=== PATIENT | female | born 1945 | race Caucasian/White ===

== ENCOUNTER 2017-04-11 10:58 | Outpatient (CLI) | payer MEDICARE | END 2017-04-11 10:59 | disposition home or self-care (01) | LOC: BICMAMMO 10:58 | PROVIDERS: ATTEND Internal Medicine | DX: Z12.31 Encounter for screening mammogram for malignant neoplasm of breast (principal); R92.1 Mammographic calcification found on diagnostic imaging of breast; Z80.3 Family history of malignant neoplasm of breast | CPT/HCPCS: 77063; 77067 ==

== ENCOUNTER 2018-04-30 09:29 | Outpatient (CLI) | payer MEDICARE | END 2018-04-30 09:30 | disposition home or self-care (01) | LOC: BICMAMMO 09:29 | PROVIDERS: ATTEND Internal Medicine | DX: Z12.31 Encounter for screening mammogram for malignant neoplasm of breast (principal); Z80.3 Family history of malignant neoplasm of breast | CPT/HCPCS: 77063; 77067 ==

== ENCOUNTER 2019-05-04 08:39 | Outpatient (CLI) | payer MEDICARE ==
--- NOTE | 2019-05-06 13:29 | MMO ---
Bilateral MAMMO Bilat Screen [facility]. CLINICAL HISTORY: Patient is 74 years old and is seen for screening. The patient has the following family history of breast cancer: daughter, at age 40, malignant (generic). The patient has no personal history of cancer. VIEWS: The views performed were: bilateral craniocaudal with tomosynthesis and bilateral mediolateral oblique with tomosynthesis. FILMS COMPARED: The present examination has been compared to prior imaging studies performed at [facility] on 01/26/2015, 03/13/2016, 04/11/2017 and 04/30/2018. This study has been interpreted with the assistance of computer-aided detection. MAMMOGRAM FINDINGS: There are scattered fibroglandular densities. There are stable benign appearing calcifications seen in both breasts. There are also vascular calcifications. There are no suspicious masses, suspicious calcifications, or new areas of architectural distortion. IMPRESSION: THERE IS NO MAMMOGRAPHIC EVIDENCE OF MALIGNANCY. A ROUTINE FOLLOW-UP MAMMOGRAM IN 1 YEAR IS RECOMMENDED. THE RESULTS OF THIS EXAM WERE SENT TO THE PATIENT. ACR BI-RADS Category 2 - Benign finding MAMMOGRAPHY NOTE: 1. A negative mammogram report should not delay a biopsy if a dominant of clinically suspicious mass is present. 2. Approximately 10% to 15% of breast cancers are not detected by mammography. 3. Adenosis and dense breasts may obscure an underlying neoplasm. Reported by: ORACIO LADD MD Electonically Signed: [id number]
== END 2019-05-04 08:40 | disposition home or self-care (01) ==
LOC: BICMAMMO 08:39
PROVIDERS: ATTEND Internal Medicine
DX: Z12.31 Encounter for screening mammogram for malignant neoplasm of breast (principal); Z80.3 Family history of malignant neoplasm of breast
CPT/HCPCS: 77063; 77067

== ENCOUNTER 2019-05-11 17:03 | Inpatient (IN) | payer MEDICARE, OTHER ==
--- NOTE | 2019-05-11 18:33 | RAD ---
XR Chest Pa Lat STANDARD HISTORY: Chest pain COMPARISON: 04/05/2014 FINDINGS: The heart size is at upper limits of normal. The lungs are well expanded without focal area s of consolidation, pneumothorax or pleural effusions. IMPRESSION: No radiographic evidence of acute cardiopulmonary process.
[2019-05-11 19:01] LABS: #Basophils 0.1 thou/uL (0.0-0.2); #Eosinphils 0.2 thou/uL (0.0-0.7); #Lymphocytes 1.4 thou/uL (1.20-3.40); #Monocytes 0.4 thou/uL (0.11-0.59); #Neutrophils 5.5 thou/uL (1.40-6.50); %Eosinophils 2.2 % (0.0-10.0); %Lymphocytes 19.1 % (21.0-51.0); %Monocytes 4.9 % (0.0-10.0); %Neutrophils 72.9 % (42.0-75.0); Hemoglobin 14.8 g/dL (12.0-16.0); Mean Corpuscular HGB CONC 33.5 g/dL (32.0-36.0); Mean Corpuscular Hemoglobin 30.7 pg (27.0-31.0); Mean Corpuscular Volume 91.7 fL (78.0-98.0); Mean Platelet Volume 8.3 fL (7.4-10.4); Platelet Count 267 thou/uL (130-400); RBC Distribution Width 12.5 % (11.5-14.5); Red Blood Cell (RBC) Count 4.81 mill/uL (4.20-5.40); White Blood Cell (WBC) Count 7.6 thou/uL (4.8-10.8)
[2019-05-11 19:16] LABS: ALT (SGPT) 17 U/L (8-55); AST (SGOT) 20 U/L (5-34); Albumin 4.4 g/dL (3.4-4.8); Alkaline Phosphatase 94 U/L (40-110); Anion Gap 14 mmol/L (10-20); BUN (Urea Nitrogen) 22 mg/dL (9.8-20.1); Bilirubin, Total 0.9 mg/dL (0.2-1.2); Calc. Creatinine Clearance 0 mL/min (70-130); Calcium 9.5 mg/dL (7.8-10.44); Carbon Dioxide 28 mmol/L (23-31); Chloride 101 mmol/L (98-107); Estimated GFR-MDRD 67; Globulin 2.9 g/dL (2.4-3.5); Glucose 120 mg/dL (83-110); Potassium 4.4 mmol/L (3.5-5.1); Protein, Total 7.3 g/dL (6.0-8.3); Sodium 139 mmol/L (136-145)
[2019-05-11] MEDS ORDERED: Nitroglycerin 2% Ointment 1 INCH/1 GM Packet ONE (19:18)
[2019-05-11 19:58] LABS: CK (CPK) 138 U/L (29-168); Lipase 14 U/L (8-78)
[2019-05-11 20:02] LABS: CKMB 3.1 ng/mL (0-6.6)
[2019-05-11] MEDS ORDERED: Enoxaparin Sodium 30 MG/0.3 ML SYRINGE ONE (20:18)
[2019-05-11] MEDS ORDERED: Enoxaparin Sodium 60 MG/0.6 ML SYRINGE ONE (20:18)
[2019-05-11] MEDS ORDERED: Morphine 2 MG/ML SYRINGE SLOW IVP PRN ×2 (21:13→22:14)
[2019-05-11] MEDS ORDERED: Nitroglycerin 0.4 MG TAB (25 Tab Bottle) SL PRN (21:13)
[2019-05-11] MEDS ORDERED: Ondansetron PF 4 MG/2 ML Vial IVP PRN (21:15)
--- NOTE | 2019-05-11 21:24 | PDOC.HHP ---
Hospitalist HPI - History of Present Illness Chest pain History of Present Illness: 74 yo with history of A.Fib s/p ablation here for chest pain that started yesterday. She describes it as indigestion, 3/10 intensity in the middle of the chest radiating to her left shoulder. This happened yesterday and resolved. Again happened today AM and she took 2 ASA and lopressor that she takes PRN. The chest pain resolved. As it happened again this evening, she came to ER and was found to have elevated troponins. She got full dose lovenox and is being admitted for NSTEMI. Denies SOB, cough, wheezing, N/V/C, abdominal pain, burning or pain with urination. No swelling in her legs. No recent travel history, headache, dizziness. She reports diarrhea today. No fever, chills. Hospitalist ROS - Review of Systems All other systems reviewed; all pertinent +/- noted in HPI/Subj Hospitalist History - Past Medical History Source: patient Cardiac: reports: AFIB Pulmonary: reports: Other (Pulmonary HTN) Heme/Onc: reports: Cancer (Bladder s/p resection), Other (Pernicious anemia) - Past Surgical History Past Surgical History: reports: Total Knee Replacement (Right) Other Surgical History: Bladder cancer surgery - Family History Family History: reports: no pertinent history (reviewed) - Social History Smoking Status: Former smoker Tobacco Type: cigarettes (20 pack years) Alcohol: reports: Occassional Drugs: reports: none Living Situation: With Family Activity level: uses cane/walker (intermittently) - Exam General Appearance: NAD, awake alert Eye: PERRL, anicteric sclera ENT: normocephalic atraumatic, no oropharyngeal lesions, moist mucosa Neck: supple, symmetric, no JVD, no thyromegaly, no lymphadenopathy, no carotid bruit Heart: RRR, no murmur, no gallops, no rubs, normal peripheral pulses Respiratory: CTAB, no wheezes, no rales, no ronchi, normal chest expansion, no tachypnea Respiratory - other findings: not using accessory muscles of respiration; no chest wall tenderness Gastrointestinal: soft, non-tender, non-distended, normal bowel sounds, no palpable masses, no hepatomegaly, no splenomegaly, no bruit Extremities: no cyanosis, no clubbing, no edema Skin: normal turgor, no lesions, no rashes Neurological: cranial nerve grossly intact, normal sensation to touch, no weakness, no focal deficits, no new deficit Musculoskeletal: normal tone, normal strength, no muscle wasting Psychiatric: normal affect, normal behavior, A&O x 3 Hospitalist Results - Labs Result Diagrams: 05/11/19 18:51 05/11/19 18:51 Lab results: WBC 7.6 thou/uL (4.8-10.8) 05/11/19 18:51 Hgb 14.8 g/dL (12.0-16.0) 05/11/19 18:51 Hct 44.1 % (36.0-47.0) 05/11/19 18:51 MCV 91.7 fL (78.0-98.0) 05/11/19 18:51 Plt Count 267 thou/uL (130-400) 05/11/19 18:51 Neutrophils % 72.9 % (42.0-75.0) 05/11/19 18:51 Sodium 139 mmol/L (136-145) 05/11/19 18:51 Potassium 4.4 mmol/L (3.5-5.1) 05/11/19 18:51 Chloride 101 mmol/L (98-107) 05/11/19 18:51 Carbon Dioxide 28 mmol/L (23-31) 05/11/19 18:51 BUN 22 mg/dL (9.8-20.1) H 05/11/19 18:51 Creatinine 0.83 mg/dL (0.6-1.1) 05/11/19 18:51 Glucose 120 mg/dL (83-110) H 05/11/19 18:51 Calcium 9.5 mg/dL (7.8-10.44) 05/11/19 18:51 Total Bilirubin 0.9 mg/dL (0.2-1.2) 05/11/19 18:51 AST 20 U/L (5-34) 05/11/19 18:51 ALT 17 U/L (8-55) 05/11/19 18:51 Alkaline Phosphatase 94 U/L (40-110) 05/11/19 18:51 Creatine Kinase 138 U/L (29-168) 05/11/19 18:51 CK-MB (CK-2) 3.1 ng/mL (0-6.6) 05/11/19 18:51 Troponin I 0.315 ng/mL (< 0.028) H* 05/11/19 18:51 Serum Total Protein 7.3 g/dL (6.0-8.3) 05/11/19 18:51 Albumin 4.4 g/dL (3.4-4.8) 05/11/19 18:51 Lipase 14 U/L (8-78) 05/11/19 18:51 - EKG Interpretation EKG: Personally reviewed; S.rhythm; Non-specific ST-T changes - Radiology Interpretation Chest x-ray Status: image reviewed by me (no consolidation or CP angle blunting) Hospitalist H&P A/P - Problem (1) NSTEMI (non-ST elevated myocardial infarction) Code(s): I21.4 - NON-ST ELEVATION (NSTEMI) MYOCARDIAL INFARCTION Status: Acute Assessment and Plan: Admit to telemetry to inpatient status. Expected to stay at least 2 midnights. High risk due to risk of lethal arrhythmias Received ASA and NTG patch Continue ASA Start plavix, statin Cardio consult ECHO ordered Full dose lovenox Cycle cardiac enzymes (2) Atrial fibrillation Code(s): I48.91 - UNSPECIFIED ATRIAL FIBRILLATION Status: Chronic Qualifiers: Atrial fibrillation type: paroxysmal Qualified Code(s): I48.0 - Paroxysmal atrial fibrillation Assessment and Plan: In sinus rhythm now Uses BB PRN as instructed by her respiratory director from [place] HR in 60-70s Hold BB for now to avoid bradycardia (3) Pulmonary hypertension Code(s): I27.20 - PULMONARY HYPERTENSION, UNSPECIFIED Status: Chronic Assessment and Plan: Not requiring oxygen Stable (4) Pernicious anemia Code(s): D51.0 - VITAMIN B12 DEFIC ANEMIA DUE TO INTRINSIC FACTOR DEFICIENCY Status: Chronic Assessment and Plan: Stable Monitor H&H and transfuse PRN (5) LAKESHA (obstructive sleep apnea) Code(s): G47.33 - OBSTRUCTIVE SLEEP APNEA (ADULT) (PEDIATRIC) Status: Chronic Assessment and Plan: Uses CPAP at home Instructed to bring home CPAP for use in the hospital Doesn't remember her settings - Plan Plan: Code status - FULL CODE
[2019-05-11] MEDS ORDERED: Clopidogrel Bisulfate 300 MG TAB PO SCH (22:15)
[2019-05-11 22:39] LABS: Troponin I 1.296 ng/mL (< 0.028)
[2019-05-12 00:03] VITALS: BMI 31.0
[2019-05-12] MEDS: Acetaminophen 500 MG TAB PO PRN ×2 (01:00→10:15)
[2019-05-12 01:20] LABS: Troponin I 2.408 ng/mL (< 0.028)
[2019-05-12 05:10] LABS: #Basophils 0.1 thou/uL (0.0-0.2); #Eosinphils 0.2 thou/uL (0.0-0.7); #Lymphocytes 2.4 thou/uL (1.20-3.40); #Monocytes 0.7 thou/uL (0.11-0.59); #Neutrophils 5.4 thou/uL (1.40-6.50); %Basophils 1.2 % (0.0-1.0); %Eosinophils 2.5 % (0.0-10.0); %Lymphocytes 26.9 % (21.0-51.0); %Monocytes 7.7 % (0.0-10.0); %Neutrophils 61.8 % (42.0-75.0); Hemoglobin 12.9 g/dL (12.0-16.0); Mean Corpuscular HGB CONC 33.3 g/dL (32.0-36.0); Mean Corpuscular Hemoglobin 30.5 pg (27.0-31.0); Mean Corpuscular Volume 91.6 fL (78.0-98.0); Mean Platelet Volume 8.9 fL (7.4-10.4); Platelet Count 231 thou/uL (130-400); RBC Distribution Width 12.3 % (11.5-14.5); Red Blood Cell (RBC) Count 4.24 mill/uL (4.20-5.40); White Blood Cell (WBC) Count 8.8 thou/uL (4.8-10.8)
[2019-05-12 05:21] LABS: ALT (SGPT) 14 U/L (8-55); AST (SGOT) 22 U/L (5-34); Albumin 3.6 g/dL (3.4-4.8); Alkaline Phosphatase 77 U/L (40-110); Anion Gap 12 mmol/L (10-20); BUN (Urea Nitrogen) 15 mg/dL (9.8-20.1); Calc. Creatinine Clearance 109 mL/min (70-130); Calcium 8.8 mg/dL (7.8-10.44); Carbon Dioxide 27 mmol/L (23-31); Chloride 103 mmol/L (98-107); Cholesterol 174 mg/dl (< 200 Desired); Estimated GFR-MDRD 89; Globulin 2.7 g/dL (2.4-3.5); Glucose 90 mg/dL (83-110); HDL Cholesterol 44 mg/dL (>60 Neg Risk); LDL Cholesterol, Calculated 112 mg/dL; Potassium 3.5 mmol/L (3.5-5.1); Protein, Total 6.3 g/dL (6.0-8.3); Sodium 138 mmol/L (136-145); Triglycerides 91 mg/dL (Less than 150)
[2019-05-12 05:32] LABS: Critical Call Chem Troponin I RESULT DECREASING
[2019-05-12 05:55] LABS: CKMB 12.2 ng/mL (0-6.6)
[2019-05-12] MEDS: Sodium Chloride 0.9% 1,000 ML IV SCH ×2 (08:11→21:27)
[2019-05-12] MEDS: Enoxaparin Sodium 100 MG/ML SYRINGE SC SCH ×2 (10:13→21:29)
[2019-05-12] MEDS: Clopidogrel Bisulfate 75 MG TAB PO SCH (10:15)
[2019-05-12] MEDS: Aspirin 81 mg Enteric Coated Tablet PO SCH (10:15)
--- NOTE | 2019-05-12 15:45 | PDOC.HOSPP ---
- Subjective Encounter Date: 05/12/19 Encounter Time: 08:45 Subjective: no chest pain or sob or palp last stress test was more than 4 yrs ago has had atleast 4 ablations for afib, last one was in jan 2018 in [place]. h/o pulm htn from 2013 off toprol scheduled dosing from august of last year, uses on a prn basis - Objective Vital Signs & Weight: Vital Signs (12 hours) Temp Pulse Resp BP Pulse Ox 05/12/19 11:18 98 F 65 14 109/60 95 05/12/19 08:11 97.8 F 66 18 113/60 94 L Weight Weight 204 lb 1.6 oz I&O: 05/11/19 05/12/19 05/13/19 06:59 06:59 06:59 Intake Total 120 Output Total 1000 Balance -880 Result Diagrams: 05/12/19 04:05 05/12/19 04:05 Hospitalist ROS - Medication Medications: Active Medications Generic Name Dose Route Start Last Admin Trade Name Freq PRN Reason Stop Dose Admin Acetaminophen 500 mg 05/11/19 21:15 05/12/19 10:15 Tylenol PO 500 mg Q6H PRN Administration Mild Pain (1-3) Aspirin 81 mg 05/12/19 09:00 05/12/19 10:15 Ecotrin PO 81 mg DAILY JUNIOR Administration Clopidogrel Bisulfate 75 mg 05/12/19 09:00 05/12/19 10:15 Plavix PO 75 mg DAILY JUNIOR Administration Enoxaparin Sodium 90 mg 05/12/19 09:00 05/12/19 10:13 Lovenox SC 90 mg 0900,2100 JUNIOR Administration Sodium Chloride 1,000 mls @ 70 mls/hr 05/12/19 07:15 05/12/19 08:11 Normal Saline 0.9% IV 1,000 mls .[id number] JUNIOR Administration - Exam General Appearance: awake alert Eye: PERRL, anicteric sclera ENT: no oropharyngeal lesions, moist mucosa Neck: supple, no JVD Heart: RRR, no murmur Respiratory: no wheezes, no rales Gastrointestinal: soft, non-tender, non-distended, normal bowel sounds Extremities: no cyanosis, no edema Neurological: cranial nerve grossly intact, no focal deficits Psychiatric: normal affect, A&O x 3 Hosp A/P (1) NSTEMI (non-ST elevated myocardial infarction) Code(s): I21.4 - NON-ST ELEVATION (NSTEMI) MYOCARDIAL INFARCTION Status: Acute (2) Atrial fibrillation Code(s): I48.91 - UNSPECIFIED ATRIAL FIBRILLATION Status: Chronic Qualifiers: Atrial fibrillation type: paroxysmal Qualified Code(s): I48.0 - Paroxysmal atrial fibrillation (3) LAKESHA (obstructive sleep apnea) Code(s): G47.33 - OBSTRUCTIVE SLEEP APNEA (ADULT) (PEDIATRIC) Status: Chronic (4) Pernicious anemia Code(s): D51.0 - VITAMIN B12 DEFIC ANEMIA DUE TO INTRINSIC FACTOR DEFICIENCY Status: Chronic (5) Pulmonary hypertension Code(s): I27.20 - PULMONARY HYPERTENSION, UNSPECIFIED Status: Chronic (6) Dyslipidemia Code(s): E78.5 - HYPERLIPIDEMIA, UNSPECIFIED Status: Chronic - Plan no prior cath or cad, last stress test was >4 yrs back and was normal per patient no current chest pain trop is upto 2.3, ckmb is 12, ldl of 112 is npo for possible cath per cardiology adv on lovenox full dose, nitropaste, morphine prn, asp, plavix and lipitor hemostable
[2019-05-12] MEDS ORDERED: Communication Order-Pharmacy FS SCH (19:45)
[2019-05-12] MEDS: Atorvastatin Calcium 40 MG TAB PO SCH (21:26)
--- NOTE | 2019-05-13 01:35 | CON ---
DATE OF CONSULTATION: HISTORY OF PRESENT ILLNESS: The patient is a 74-year-old woman with a history of paroxysmal atrial fibrillation, who presented with chest discomfort. The patient has a long history of atrial fibrillation. She states she has undergone multiple ablations in [place]. The patient states her first one was in 2001 and the last one was in 2018. The patient was in her usual state of health when she developed mid sternal chest discomfort. She came to the emergency room. Her chest pain resolved with nitroglycerin. The patient denies any present chest discomfort. PAST MEDICAL HISTORY: 1. Atrial fibrillation. 2. Pulmonary hypertension. 3. Bladder carcinoma. PAST SURGICAL HISTORY: Knee surgery and bladder surgery. ALLERGIES: SEE NURSING LIST. SOCIAL HISTORY: Nonsmoker. MEDICATIONS: 1. Spironolactone 25 daily. 2. Estradiol 1 g daily. 3. Aspirin 81 daily. 4. Metoprolol 12.5 daily. SOCIAL HISTORY: Nonsmoker. FAMILY HISTORY: Positive family history of heart disease. REVIEW OF SYSTEMS: Ten-point system otherwise unremarkable. No history of easy bruising or bleeding. PHYSICAL EXAMINATION: GENERAL: This is an obese woman, in no acute distress. VITAL SIGNS: Blood pressure 112/59. NECK: No jugular venous distention. LUNGS: Clear to auscultation. HEART: Regular rate and rhythm. Normal S1, S2. No murmurs. ABDOMEN: Nondistended. EXTREMITIES: Showed no edema. VASCULAR: Radial pulses are 2+. LABORATORY DATA: Sodium 138, potassium 3.5, chloride 103, bicarbonate 27, BUN 15, creatinine 0.65. Troponin was 2.3. Her white blood cell count is 8.8, hemoglobin 12.9, hematocrit 38.8, and platelet 231. EKG ectopic atrial rhythm with a low- voltage QRS. IMPRESSION: 1. Non-Q-wave myocardial infarction. 2. Ectopic atrial rhythm. 3. History of atrial fibrillation. 4. Sleep apnea. 5. History of bladder carcinoma. This patient presents with a non-Q-wave myocardial infarction. The patient is agreeable to undergo a cardiac catheterization to evaluate the extent of her coronary arteries. The risks involved the procedure including PA, bleeding, stroke, cardiacarrhythmias, and cardiac . The patient understands these risks and wishes to proceed. PLAN: Proceed with cardiac catheterization. Job ID: [id number] [facility]
[2019-05-13 04:41] LABS: Hemoglobin 13.3 g/dL (12.0-16.0); Platelet Count 215 thou/uL (130-400)
[2019-05-13] MEDS: Aspirin 81 mg Enteric Coated Tablet PO SCH (06:15)
[2019-05-13] MEDS: Clopidogrel Bisulfate 75 MG TAB PO SCH (06:17)
[2019-05-13] MEDS ORDERED: Lidocaine 1% (PF) 30 ML VIAL ONE (07:49)
[2019-05-13] MEDS ORDERED: Fentanyl 100 MCG/2 ML VIAL ONE (08:21)
[2019-05-13] MEDS ORDERED: Midazolam HCl 2 mg/2 ml Vial ONE (08:21)
[2019-05-13] MEDS ORDERED: Nitroglycerin 0.4 MG TAB (25 Tab Bottle) SL PRN (08:45)
[2019-05-13] MEDS ORDERED: Sodium Chloride 0.9% 200 ML IV PRN (08:45)
[2019-05-13] MEDS ORDERED: Acetaminophen/Codeine 30-300mg Tablet PO PRN (08:45)
[2019-05-13] MEDS ORDERED: Iopamidol 370 76% 100 ML VIAL ONE (09:05)
[2019-05-13] MEDS: Acetaminophen/Codeine 30-300mg Tablet PO PRN ×2 (10:03→18:06)
[2019-05-13] MEDS: Sodium Chloride 0.9% 1,000 ML IV SCH ×2 (10:04→18:07)
--- NOTE | 2019-05-13 12:41 | PDOC.HOSPP ---
- Subjective Encounter Date: 05/13/19 Encounter Time: 10:45 Subjective: had cath this am, no sob feels fine family at bedside - Objective Vital Signs & Weight: Vital Signs (12 hours) Temp Pulse Resp BP Pulse Ox 05/13/19 12:00 98.6 F 73 18 117/58 L 95 05/13/19 07:37 97.8 F 68 20 118/57 L 97 05/13/19 03:57 98.7 F 68 18 133/65 96 Weight Weight 204 lb 1.6 oz I&O: 05/12/19 05/13/19 05/14/19 06:59 06:59 06:59 Intake Total 120 830 Output Total 1000 1500 Balance -880 -670 Result Diagrams: 05/13/19 03:55 05/13/19 03:55 Hospitalist ROS - Medication Medications: Active Medications Generic Name Dose Route Start Last Admin Trade Name Freq PRN Reason Stop Dose Admin Acetaminophen 500 mg 05/11/19 21:15 05/12/19 10:15 Tylenol PO 500 mg Q6H PRN Administration Mild Pain (1-3) Acetaminophen/Codeine Phosphate 1 tab 05/13/19 08:45 05/13/19 10:03 Tylenol #3 PO 1 tab Q4H PRN Administration Mild Pain (1-3) Aspirin 81 mg 05/12/19 09:00 05/13/19 06:15 Ecotrin PO 81 mg DAILY JUNIOR Administration Atorvastatin Calcium 40 mg 05/12/19 21:00 05/12/19 21:26 Lipitor PO 40 mg HS JUNIOR Administration Sodium Chloride 1,000 mls @ 125 mls/hr 05/13/19 08:45 05/13/19 10:04 Normal Saline 0.9% IV Not Given .Q8H JUNIOR - Exam General Appearance: awake alert Eye: PERRL, anicteric sclera ENT: no oropharyngeal lesions, moist mucosa Neck: supple, no JVD Heart: RRR, no murmur Respiratory: no wheezes, no rales Gastrointestinal: soft, non-tender, non-distended, normal bowel sounds Extremities: no cyanosis, no edema Neurological: cranial nerve grossly intact, no focal deficits Psychiatric: normal affect, A&O x 3 Hosp A/P (1) NSTEMI (non-ST elevated myocardial infarction) Code(s): I21.4 - NON-ST ELEVATION (NSTEMI) MYOCARDIAL INFARCTION Status: Acute (2) Atrial fibrillation Code(s): I48.91 - UNSPECIFIED ATRIAL FIBRILLATION Status: Chronic Qualifiers: Atrial fibrillation type: paroxysmal Qualified Code(s): I48.0 - Paroxysmal atrial fibrillation (3) LAKESHA (obstructive sleep apnea) Code(s): G47.33 - OBSTRUCTIVE SLEEP APNEA (ADULT) (PEDIATRIC) Status: Chronic (4) Pernicious anemia Code(s): D51.0 - VITAMIN B12 DEFIC ANEMIA DUE TO INTRINSIC FACTOR DEFICIENCY Status: Chronic (5) Pulmonary hypertension Code(s): I27.20 - PULMONARY HYPERTENSION, UNSPECIFIED Status: Chronic (6) Dyslipidemia Code(s): E78.5 - HYPERLIPIDEMIA, UNSPECIFIED Status: Chronic - Plan Official cath report pending, per patient they found her to have Takusubo syndrome. no prior cath or cad, last stress test was >4 yrs back and was normal per patient trop was upto 2.3, ckmb was 12, ldl of 112 asp, plavix and lipitor. Echo results pending hemostable DC plan per cardiology adv
[2019-05-13] MEDS: Atorvastatin Calcium 40 MG TAB PO SCH (20:26)
[2019-05-14] MEDS: Acetaminophen/Codeine 30-300mg Tablet PO PRN (00:41)
[2019-05-14] MEDS: Sodium Chloride 0.9% 1,000 ML IV SCH (00:43)
[2019-05-14] MEDS ORDERED: Carvedilol 3.125 MG TAB PO SCH (09:00)
[2019-05-14] MEDS: Aspirin 81 mg Enteric Coated Tablet PO SCH (09:05)
[2019-05-14 11:43] VITALS: TEMP 97.5
[2019-05-14 14:24] VITALS: BP 125/58
--- NOTE | 2019-05-14 21:38 | DIS ---
DATE OF ADMISSION: 05/11/2019 DATE OF DISCHARGE: 05/14/2019 REASON FOR HOSPITALIZATION: Chest pain. SIGNIFICANT FINDINGS: The patient was found to have atrial fibrillation with rapid ventricular response, who is status post multiple ablations, presenting with chest discomfort, went for cardiac catheterization and was confirmed to have a low ejection fraction on echocardiogram with an ejection fraction recorded at 28%. PROCEDURES PERFORMED AND TREATMENTS RENDERED: Ms. Osorio is a very pleasant 74-year-old female, who presented to the [facility] in [place], [place] on 05/11/2019, with chest pain. Please see full history and physical and progress notes for full details on admission. On admission with chest discomfort, the patient was recommended for cardiac catheterization and was taken by Dr. Hoover, please see full cardiac catheterization report for details. The patient had no acute stent placement in her coronary anatomy, though she was found to have a reduced ejection fraction. The patient was monitored on continuous telemetry throughout her hospitalization. The patient with echocardiogram, please see full report for details, this confirmed a low ejection fraction of 20% to 25% with the apex being akinetic to dyskinetic in addition to diastolic dysfunction grade 3. The patient was diagnosed with acute on chronic congestive heart failure. The patient was diagnosed with type 2 NSTEMI, present on admission. Cardiomyopathy regimen was selected by customer support specialist, please see full report for details. Cardiology recommending anti-platelet therapy with aspirin only. The patient was on appropriate diuretic therapy including spironolactone and statin therapy. VIANNEY inhibitor was to be started, however, the patient has severe allergy to lisinopril and it was contraindicated. The patient was set up with her LifeVest by Cardiology prior to discharge on 05/14/2019. Cardiology recommending the patient safe for discharge with close followup in the outpatient setting. CONDITION ON DISCHARGE: Stable. SPECIFIC INSTRUCTIONS FOR THE PATIENT/FAMILY: 1. The patient is recommended to wear LifeVest as recommended by Cardiology. 2. The patient is recommended to take cardiomyopathy regimen as directed by Cardiology. 3. The patient is recommended to keep a strict blood pressure log and log events of low blood pressure or any time she is having symptoms, she is to take these logs to appointments with primary care physician and Cardiology in the outpatient setting. 4. The patient is recommended to take all other medications as directed, to be re-evaluated by primary care physician and Cardiology. 5. The patient is recommended to return to acute care hospital immediately if signs or symptoms return, worsen, or any other new symptoms occur. DISCHARGE MEDICATIONS: 1. Please see full discharge medication list for details. 2. Atorvastatin 40 mg one tablet p.o. at bedtime. 3. Carvedilol 3.125 mg one tablet p.o. b.i.d. 4. Spironolactone 25 mg one tablet p.o. daily. 5. Estradiol vaginal daily. 6. Torsemide 20 mg one tablet p.o. daily. 7. Vitamin D one tablet p.o. daily. 8. Vitamin B12 of 100 mcg intramuscular injection q.month. 9. Aspirin 81 mg one tablet p.o. daily. 10. Krill oil 300 mg one tablet p.o. daily. TIME SPENT: Greater than 37 minutes spent coordinating care and discharge process for this patient. Job ID: [id number]
--- NOTE | 2019-05-17 07:57 | PQF ---
CHEVYVERENICEALANNA JORDAN [id number] [facility]-254 [id number] CLINICAL DOCUMENTATION CLARIFICATION FORM: POST DISCHARGE Addendum to original discharge summary date: ____ Late entry note date: __ DATE:05/17/2019 ATTN:ALANNA WELCH Please exercise your independent, professional judgment in responding to the clarification form. Clinical indicators are provided on the bottom of this form for your review Please check appropriate box(s) to clarify if the following diagnosis has been ruled in or ruled out: Acute on chronic congestive heart failure [ ] Ruled in diagnosis [ ] Continue to treat [ ] Resolved [ ] Ruled out diagnosis [ ] Cannot rule out diagnosis [ ] Other diagnosis [ X ] Unable to determine (Please discuss with the discharging physician) In addition, If Ruled in please specify the type of CHF: HEART FAILURE: TYPE: [ ] Systolic / HFrEF [ ] Diastolic / HFpEF [ ] Combined Systolic / Diastolic For continuity of documentation, please document condition throughout progress notes and discharge summary. Thank You. CLINICAL INDICATORS - SIGNS / SYMPTOMS / LABS - patient was diagnosed with acute on chronic congestive heart failure-, 05/14 , Alec Banda DO - she was found to have a reduced ejection fraction--DS, 05/14, Alec Banda DO - the confirmed a low ejection fraction of 20% to 25% with the apex being akinetic in addition to diastolic dysfuction grade 3--DS, 05/14, Alec Banda DO - ejection fraction recorded at 28 %--BALTA, 05/14Alec DO RISK FACTORS - type 2 NSTEMI--DS, 05/14, Alec Banda DO - Hx of hypertension- ED record, 05/11, Dwight Glasgow MD TREATMENTS - Cardiology consult-05/12 -- Nitroglycerin.IV- 05/13 - Carvedolol.PO- MAR, 02/21 (This form is maintained as a part of the permanent medical record) 2014 [employer] All Rights Reserved Dari NICOLE
--- NOTE | 2019-05-17 08:55 | EKG ---
Test Reason : Blood Pressure : / mmHG Vent. Rate : 117 BPM Atrial Rate : 102 BPM P-R Int : 000 ms QRS Dur : 084 ms QT Int : 326 ms P-R-T Axes : 000 026 226 degrees QTc Int : 454 ms Atrial fibrillation with rapid ventricular response Low voltage QRS Abnormal ECG Confirmed by TIA IRWIN ([id number]) on 05/17/2019 8:55:30 AM Referred By: JOVANNI Confirmed By:TIA IRWIN
--- NOTE | 2019-05-27 00:35 | PQF ---
CHEVYVERENICE RASHAWN MIGUEL [id number] CLINICAL DOCUMENTATION CLARIFICATION FORM: POST DISCHARGE Addendum to original discharge summary date: ____ Late entry note date: __ DATE: 05/27/2019 ATTN:RASHAWN GATES Please exercise your independent, professional judgment in responding to the clarification form. Clinical indicators are provided on the bottom of this form for your review Please check appropriate box(s) to clarify if the following diagnosis has been ruled in or ruled out: Acute on chronic congestive heart failure [ XX ] Ruled in diagnosis [ ] Continue to treat [ ] Resolved [ ] Ruled out diagnosis [ ] Cannot rule out diagnosis [ ] Other diagnosis [ ] Unable to determine In addition, If Ruled in diagnosis please specify the type of CHF: Heart failure: Type: [ ] Systolic /HFrEF [ ] Diastolic / HFpEF [ XX ] Combined Systolic/ Diastolic For continuity of documentation, please document condition throughout progress notes and discharge summary. Thank You. CLINICAL INDICATORS - SIGNS / SYMPTOMS / LABS - patient was diagnosed with acute on chronic congestive heart failure- DS, , Alec Banda DO - She was found to have reduced ejection fraction- DS, 05/14, Alec Banda DO - The confirmed a low ejection fraction of 20% to 25 % with the apex being akinetic in addition to diastolic dysfuction grade 3- DS, 05/14, Alec Banda DO - Ejection fraction recorded at 28%- DS, 05/14, Alec Banda DO RISK FACTORS - Type 2 NSTEMI- DS, 05/14, Alec Banda DO - Hx of hypertension- ED record, 05/11, Dwight Glasgow MD TREATMENTS - Cardiology consult-05/12 - Nitroglycerin.IV-MAY, 05/13 - Carvedilol.PO- MAY, 05/14 (This form is maintained as a part of the permanent medical record) 2014 [employer]. All Rights Reserved Dari [email or web address] NICOLE
== END 2019-05-14 14:32 | disposition home or self-care (01) | DRG 280 ==
LOC: ERS 17:03 → 2NO 20:02
PROVIDERS: ADMIT Internal Medicine Sleep Medicine; ATTEND Internal Medicine
PROC: 4A023N7 Measurement of Cardiac Sampling and Pressure, Left Heart, Percutaneous Approach (ICD-10-PCS; principal; 2019-05-13)
PROC: B2111ZZ Fluoroscopy of Multiple Coronary Arteries using Low Osmolar Contrast (ICD-10-PCS; 2019-05-13)
DX: I48.0 Paroxysmal atrial fibrillation (principal); I21.A1 Myocardial infarction type 2; I50.43 Acute on chronic combined systolic (congestive) and diastolic (congestive) heart failure; Z96.651 Presence of right artificial knee joint; I27.20 Pulmonary hypertension, unspecified; G47.33 Obstructive sleep apnea (adult) (pediatric); I42.9 Cardiomyopathy, unspecified; D51.0 Vitamin B12 deficiency anemia due to intrinsic factor deficiency; I11.0 Hypertensive heart disease with heart failure; E78.5 Hyperlipidemia, unspecified; Z79.01 Long term (current) use of anticoagulants; Z87.891 Personal history of nicotine dependence; Z88.6 Allergy status to analgesic agent; Z88.8 Allergy status to other drugs, medicaments and biological substances
CPT/HCPCS: 36415; 71046; 76942; 80053; 80061; 82550; 82553; 82565; 83690; 84484; 85014; 85018; 85025; 85049; 93005; 93010; 93306; 93458; 93798; 94760; 96360; 96372; 99152; 99153; C1760; C1769; J1644; J1650; J2001; J2250; J3010; Q9967

== ENCOUNTER 2019-08-09 04:12 | Observation (INO) | payer MEDICARE, OTHER ==
[2019-08-09 04:50] LABS: #Basophils 0.1 thou/uL (0.0-0.2); #Eosinphils 0.4 thou/uL (0.0-0.7); #Lymphocytes 1.7 thou/uL (1.20-3.40); #Monocytes 0.5 thou/uL (0.11-0.59); %Basophils 1.4 % (0.0-1.0); %Eosinophils 6.5 % (0.0-10.0); %Lymphocytes 24.9 % (21.0-51.0); %Monocytes 7.8 % (0.0-10.0); %Neutrophils 59.4 % (42.0-75.0); Hemoglobin 12.6 g/dL (12.0-16.0); Mean Corpuscular HGB CONC 32.4 g/dL (32.0-36.0); Mean Corpuscular Hemoglobin 30.1 pg (27.0-31.0); Mean Corpuscular Volume 92.8 fL (78.0-98.0); Mean Platelet Volume 8.2 fL (7.4-10.4); Platelet Count 218 thou/uL (130-400); RBC Distribution Width 12.9 % (11.5-14.5); White Blood Cell (WBC) Count 6.7 thou/uL (4.8-10.8)
[2019-08-09 05:16] LABS: ALT (SGPT) 15 U/L (8-55); AST (SGOT) 17 U/L (5-34); Albumin 3.8 g/dL (3.4-4.8); Alkaline Phosphatase 102 U/L (40-110); Anion Gap 12 mmol/L (10-20); Bilirubin, Total 0.9 mg/dL (0.2-1.2); Calc. Creatinine Clearance 0 mL/min (70-130); Calcium 8.9 mg/dL (7.8-10.44); Carbon Dioxide 29 mmol/L (23-31); Chloride 101 mmol/L (98-107); Estimated GFR-MDRD 69; Globulin 3.1 g/dL (2.4-3.5); Glucose 128 mg/dL (83-110); Potassium 3.7 mmol/L (3.5-5.1); Protein, Total 6.9 g/dL (6.0-8.3); Sodium 138 mmol/L (136-145)
[2019-08-09 05:37] LABS: CKMB 1.5 ng/mL (0-6.6)
[2019-08-09] MEDS ORDERED: Acetaminophen 325 MG TAB PO PRN (07:44)
[2019-08-09] MEDS ORDERED: Senokot S 8.6-50 MG TAB PO PRN (07:44)
[2019-08-09 07:45] VITALS: BMI 31.9
--- NOTE | 2019-08-09 07:51 | RAD ---
Chest one view HISTORY: Chest pain. COMPARISON: 05/11/2019. FINDINGS: Cardiac silhouette is magnified and enlarged. Pulmonary vasculature now upper limits of nor mal. Ill-defined patchy areas of parenchymal opacity are now present, more pronounced in the lower lobes than the upper. Partial obscuration of the cardiac margins. No lobar consolidation or evidence of pneumothorax. Dystrophic calcification over the left rotator cuff is again demonstrated. IMPRESSION : Patchy ill-defined bilateral infiltrates. Considerations would include multifocal pneumonitis versus borderline pulmonary vascular congestion.
[2019-08-09 09:00] LABS: CKMB 1.7 ng/mL (0-6.6)
[2019-08-09] MEDS ORDERED: LIPIDS PO SCH (09:00)
[2019-08-09] MEDS ORDERED: [UNRECOGNIZED DRUG - OTHER] PO SCH (09:00)
[2019-08-09] MEDS ORDERED: DHA PO SCH (09:00)
[2019-08-09] MEDS ORDERED: VITAMIN D2 PO SCH (09:00)
[2019-08-09] MEDS ORDERED: [UNRECOGNIZED DRUG - OTHER] PO SCH (09:00)
[2019-08-09] MEDS ORDERED: KRILL PO SCH (09:00)
[2019-08-09] MEDS ORDERED: CALCIUM CITRATE PO SCH (09:00)
[2019-08-09] MEDS ORDERED: OMEGA PO SCH (09:00)
[2019-08-09] MEDS ORDERED: EPA PO SCH (09:00)
[2019-08-09] MEDS ORDERED: TABL PO SCH (09:00)
[2019-08-09] MEDS: Aspirin 81 mg Enteric Coated Tablet PO SCH (09:16)
[2019-08-09] MEDS: Fish Oil 1,000 MG CAP PO SCH (09:16)
[2019-08-09] MEDS: Calcium Carbonate 600 MG + Vit D TAB PO SCH (09:16)
[2019-08-09] MEDS: Carvedilol 3.125 MG TAB PO SCH ×2 (09:16→20:20)
[2019-08-09] MEDS: Spironolactone 25 MG TAB PO SCH (09:17)
--- NOTE | 2019-08-09 10:33 | CON ---
DATE OF CONSULTATION: 08/09/2019 REASON FOR CONSULTATION: Elevated troponin, chest pain. HISTORY OF PRESENT ILLNESS: Ms. Osorio is a very pleasant 74-year-old woman whom I have seen and evaluated in the past. 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 This is since resolved. She recently underwent echo to confirm. She re-presented with chest pain. She felt it was epigastric. She went to sleep and woke up with more pain. She states it was a burning sensation in her chest. Sitting up made it better. She did undergo coronary angiography 2 months ago without significant coronary artery disease. She did state her blood pressure was markedly elevated during this episode. PAST MEDICAL HISTORY: Atrial fibrillation, pulmonary hypertension, bladder carcinoma, knee surgery, bladder surgery. SOCIAL HISTORY: No current tobacco or alcohol use. HOME MEDICATIONS: 1. Aspirin. 2. Estradiol. 3. Spironolactone. 4. Metoprolol. REVIEW OF SYSTEMS: A 10-point review of systems is reviewed as above, otherwise negative. PHYSICAL EXAMINATION: GENERAL: Patient is a pleasant female who is in no acute distress. The patient appears their stated age. VITAL SIGNS: Blood pressure 117/68, pulse 60, temperature 97.6. NEUROLOGIC: The patient is alert and oriented x3 with no focal neurologic deficits. HEENT: Sclerae without icterus. Mouth has moist mucous membranes with normal pallor. NECK: No JVD. Carotid upstroke brisk. No bruits bilaterally. LUNGS: Clear to auscultation with unlabored respirations. BACK: No scoliosis or kyphosis. CARDIAC: Regular rate and rhythm with normal S1 and S2. No S3 or S4 noted. No significant rubs, murmurs, thrills, or gallops noted throughout the precordium. PMI is not displaced. There is no parasternal heave. ABDOMEN: Soft, nontender, nondistended. No peritoneal signs present. No hepatosplenomegaly. No abnormal striae. EXTREMITIES: 2+ femoral and 2+ dorsalis pedis pulses. No cyanosis, clubbing, or edema. SKIN: No gross abnormalities. LABORATORY DATA: Sodium 138, BUN 21, creatinine 0.8. Peak troponin 0.273. EKG, normal sinus rhythm, normal EKG. IMPRESSION: 1. Chest pain. 2. History of takotsubo cardiomyopathy. 3. History of atrial fibrillation. RECOMMENDATIONS: Ms. Osorio recently underwent coronary angiography 3 months ago and was not found to have significant coronary artery disease. Her elevated troponin likely related to demand ischemia from hypertension. We would recommend repeating her echo today. We would also recommend D-dimer to make sure she has not had a PE. If positive, we will recommend a CT scan of her chest. Chest x-ray did suggest bilateral infiltrates suggestive of pneumonitis. Job ID: [id number]
[2019-08-09 11:30] LABS: Troponin I 0.333 ng/mL (< 0.028)
--- NOTE | 2019-08-09 13:34 | HP ---
CHIEF COMPLAINT: Chest pain. HISTORY OF PRESENT ILLNESS: A 74-year-old female with a history of takotsubo cardiomyopathy and admitted here in April 2019, presenting with chest pain. It woke her up this morning. Over the time, the chest pain got worse and radiated to the left arm. It is worse than what she experienced in April 2019. At that time, cardiac cath did not show any obstruction; however, she did have a severe takotsubo cardiomyopathy with EF of 25% and given a LifeVest at the time of discharge. She currently feels good. Denies any chest pain. No productive cough, short of breath, or any fever. She did, however, notice that her blood pressure is higher than usual. REVIEW OF SYSTEMS: A 13-point review of systems is reviewed, pertinent addressed in the history of present illness. Rest are negative. ALLERGIES: SHE HAS NO KNOWN DRUG ALLERGIES. PAST MEDICAL HISTORY: 1. Atrial fibrillation. 2. Pulmonary hypertension. 3. Pernicious anemia. 4. Obstructive sleep apnea. SOCIAL HISTORY: She uses occasional social alcohol use. Nonsmoker. Lives with her spouse. FAMILY HISTORY: Noncontributory. HOME MEDICATIONS: 1. Aspirin 81 mg daily. 2. Calcium 40 mg at bedtime. 3. Coreg 3.125 mg twice a day. 4. Fish oil. 5. Spironolactone 25 mg daily. PHYSICAL EXAMINATION: VITAL SIGNS: Her temperature is 97.6, blood pressure 117/68, pulse 60, and saturating 95% on room air. GENERAL: The patient is alert and oriented, does not appear toxic and not in any distress. HEENT: Pupils are equal, round, and reactive to light. Anicteric. Mucous membranes moist. CARDIOVASCULAR: Irregular rhythm, regular rate. ABDOMEN: Soft, nontender, and nondistended. LUNGS: Clear. NEUROLOGIC: No focal deficits. PSYCHIATRIC: Appropriate mood and affect. SKIN: No rash. LABORATORY DATA: Her CBC in the normal range. A complete metabolic panel also in the normal range except initial troponin 0.15, next 0.273, and third one came back just now with 0.33. EKG showed normal sinus rhythm. Chest x-ray showed bilateral infiltrate. IMPRESSION AND PLAN: A 74-year-old female with a history of takotsubo cardiomyopathy, presenting with chest pain. 1. Ohu-XR-gxzfsolud myocardial infarction. 2. Nonobstructive coronary artery disease. 3. Takotsubo cardiomyopathy/nonischemic cardiomyopathy. 4. Atrial fibrillation, currently sinus rhythm. 5. Hypertension. 6. Pulmonary hypertension. 7. Pernicious anemia. Given her elevated troponin, initially the patient was planned to be discharged after getting a 2D echo as she had recent admission and normal cath; however, it is noted that her troponin is elevated now and she is asymptomatic. There is also a finding of bilateral infiltrate on a chest x-ray without any signs and symptoms of the pulmonary dysfunction. The patient with a history of pulmonary hypertension , this could be underlying chronic lung disease including ILD. However, we need to rule out COVID, so we will keep her in observation and monitor overnight, and we will wait for the COVID results to come back before further action. Continue with her home medications. Full code. Job ID: [id number] MTDD
[2019-08-09 15:16] LABS: CKMB 2.3 ng/mL (0-6.6)
[2019-08-09 17:40] LABS: SARS-CoV-2 MS2 Positive; SARS-CoV-2 N Gene Negative; SARS-CoV-2 S Gene Negative; SARS-CoV-2 orf1ab Negative
[2019-08-09] MEDS ORDERED: Atorvastatin Calcium 40 MG TAB PO SCH (21:00)
[2019-08-10 06:09] LABS: #Basophils 0.1 thou/uL (0.0-0.2); #Eosinphils 0.3 thou/uL (0.0-0.7); #Lymphocytes 1.7 thou/uL (1.20-3.40); #Monocytes 0.5 thou/uL (0.11-0.59); #Neutrophils 4.3 thou/uL (1.40-6.50); %Eosinophils 4.3 % (0.0-10.0); %Lymphocytes 24.9 % (21.0-51.0); %Monocytes 7.1 % (0.0-10.0); %Neutrophils 62.7 % (42.0-75.0); Hemoglobin 13.4 g/dL (12.0-16.0); Mean Corpuscular Hemoglobin 28.9 pg (27.0-31.0); Mean Corpuscular Volume 93.3 fL (78.0-98.0); Mean Platelet Volume 8.4 fL (7.4-10.4); Platelet Count 218 thou/uL (130-400); Red Blood Cell (RBC) Count 4.62 mill/uL (4.20-5.40); White Blood Cell (WBC) Count 6.9 thou/uL (4.8-10.8)
[2019-08-10 06:29] LABS: Albumin 3.7 g/dL (3.4-4.8); Anion Gap 12 mmol/L (10-20); BUN (Urea Nitrogen) 13 mg/dL (9.8-20.1); BUN/Creatinine Ratio 17.81; Calc. Creatinine Clearance 100 mL/min (70-130); Carbon Dioxide 26 mmol/L (23-31); Chloride 102 mmol/L (98-107); Estimated GFR-MDRD 78; Glucose 109 mg/dL (83-110); Phosphorus 3.8 mg/dL (2.3-4.7); Sodium 136 mmol/L (136-145)
[2019-08-10] MEDS: Aspirin 81 mg Enteric Coated Tablet PO SCH (08:10)
[2019-08-10] MEDS: Calcium Carbonate 600 MG + Vit D TAB PO SCH (08:10)
[2019-08-10] MEDS: Fish Oil 1,000 MG CAP PO SCH (08:10)
[2019-08-10] MEDS: Carvedilol 3.125 MG TAB PO SCH (08:10)
[2019-08-10] MEDS: Spironolactone 25 MG TAB PO SCH (08:11)
[2019-08-10] MEDS ORDERED: Torsemide 20 MG TAB PO SCH (09:00)
[2019-08-10 12:24] VITALS: BP 117/57; TEMP 97.6
--- NOTE | 2019-08-10 14:01 | PRG ---
DATE OF SERVICE: 08/10/2019 SUBJECTIVE: Ms. Osorio is doing well. No current complaints. OBJECTIVE: VITAL SIGNS: Blood pressure 121/58, pulse 60, temperature 97.8. LUNGS: Clear to auscultation. HEART: Regular rate and rhythm. ABDOMEN: Soft, nontender, and nondistended. EXTREMITIES: No edema. DIAGNOSTIC STUDIES: Echo with doppler shows LVEF 30% to 35%, consistent with takotsubo cardiomyopathy. IMPRESSION: 1. Atypical chest pain. 2. Takotsubo cardiomyopathy. 3. Elevated troponin. RECOMMENDATIONS: Ms. Osorio's case is somewhat interesting. She was diagnosed with takotsubo cardiomyopathy 2 months ago. She had a repeat echo 1 month ago, that showed complete resolution with normal LVEF. It appears she has reverted back to a low LVEF of 30% to 35%. She denies any significant stressors recently. She has been taking her medications, although has not been on VIANNEY inhibitor or ARB due to previous allergy. At this point, I would recommend carvedilol as she has taken in the past. Would also recommend low-dose Imdur. Conceivably, she could be having spasm of her LAD, that is causing her current symptoms, although this also involves the inferior wall, which is not typical. I discussed LifeVest with Ms. Osorio. She is very familiar with LifeVest. She would like to go home and had this set up as an outpatient. She understands the risks of sudden cardiac , although risks are low. Otherwise, I have no further recommendations. Job ID: [id number]
--- NOTE | 2019-08-10 16:39 | DIS ---
DATE OF ADMISSION: 08/09/2019 DATE OF DISCHARGE: 08/10/2019 DISCHARGE DIAGNOSES: 1. Dkw-MD-xeaxome elevation myocardial infarction with a type 2 demand ischemia. 2. Nonobstructive coronary artery disease. 3. Takotsubo cardiomyopathy/nonischemic cardiomyopathy. 4. Atrial fibrillation, status post spontaneous conversion to sinus rhythm. 5. Hypertension. 6. Pulmonary hypertension. 7. Pernicious anemia. DISCHARGE MEDICATIONS: 1. Aspirin 81 mg, discontinued. 2. Added as new medications: a. Isosorbide mononitrate 30 mg daily. b. Lipitor 40 mg at bedtime. 3. Torsemide 20 mg daily. 4. Estradiol. 5. Vitamin B12 .. 6. Spironolactone 12.5 mg daily. 7. Calcium citrate, vitamin D combination. PHYSICAL EXAMINATION: VITAL SIGNS: On the day of discharge, temperature 97.6, 60, blood pressure 117/ 57, and saturating 95% on room air. GENERAL: She is quite healthy, very knowledgeable person. She had several questions of Takotsubo cardiomyopathy and the management. I explained to the best of my knowledge. CARDIOVASCULAR: Regular rate and rhythm without murmurs, rubs, or gallops. LUNGS: Clear. ABDOMEN: Quite benign. HOSPITAL COURSE: A 74-year-old female presented with chest pain with a recent history of nonobstructive coronary artery disease as well as Takotsubo cardiomyopathy. Troponin elevated at 0.033. Dr. Hoover followed. It appears that this is type 2 demand ischemia. She also had abnormal chest x-ray with bilateral infiltrate versus atelectasis. She was observed for overnight and COVID test is negative. The patient does have a history of pulmonary hypertension. She had undergone a coronary angiogram 2 months ago and did not show any significant coronary artery disease. Her echo at that time suggested Takotsubo cardiomyopathy. So, follow up echo done and report is pending. But it appears that her EF is still on the low end, but she was expected to follow with Dr. Hoover to arrange for her LifeVest. She will pick that up in his clinic within a week. Aspirin discontinued and isosorbide mononitrate added. With these interventions, the patient is discharged in stable condition to home. DISCHARGE ACTIVITY: As tolerated. Primary care physician in [address] Hoover within a week to get the LifeVest. TIME SPENT: Discharge time took over 30 minutes. Job ID: [id number] MTDD
[2019-08-11] MEDS ORDERED: Isosorbide Mononitrate (ER) 30 MG TAB PO SCH (09:00)
[2019-08-12 15:35] LABS: BUN (Urea Nitrogen) 18 mg/dL (9.8-20.1)
== END 2019-08-10 14:44 | disposition home or self-care (01) ==
LOC: ERS 04:12 → 2NO 07:33 → 2SW 12:13
PROVIDERS: ADMIT Internal Medicine; ATTEND Internal Medicine
DX: I21.A1 Myocardial infarction type 2 (principal); I25.10 Atherosclerotic heart disease of native coronary artery without angina pectoris; I51.81 Takotsubo syndrome; I48.91 Unspecified atrial fibrillation; I10 Essential (primary) hypertension; I27.20 Pulmonary hypertension, unspecified; D51.0 Vitamin B12 deficiency anemia due to intrinsic factor deficiency; G47.33 Obstructive sleep apnea (adult) (pediatric); R91.8 Other nonspecific abnormal finding of lung field; Z20.828 Contact with and (suspected) exposure to other viral communicable diseases; Z87.891 Personal history of nicotine dependence; Z79.899 Other long term (current) drug therapy; Z88.1 Allergy status to other antibiotic agents; Z88.5 Allergy status to narcotic agent; Z88.8 Allergy status to other drugs, medicaments and biological substances; Z91.048 Other nonmedicinal substance allergy status
CPT/HCPCS: 71045; 80053; 80069; 82553; 84484 ×2; 85025 ×2; 85379; 93005; 93306; 99285; G0378 ×3; U0003; 36415; 87635

== ENCOUNTER 2020-04-24 15:32 | Outpatient (CLI) | payer MEDICARE, OTHER ==
--- NOTE | 2020-04-24 16:18 | ULT ---
Right lower extremity venous Doppler ultrasound 04/24/2020 COMPARISON: 11/19/2019 HISTORY: Trauma, swelling, prior knee replacement TECHNIQUE: Multiplanar grayscale sonographic imaging venous structures right lower extremity obtained with color flow and spectral analysis FINDINGS: Right common femoral vein, greater saphenous vein, profunda femoral vein, femoral vein, pop liteal vein, and posterior tibial vein are patent. Normal blood flow, augmentation, and compression within the deep venous system. No evidence for DVT. There are mildly prominent nonspecific inguinal lymph nodes measuring up to 1.2 cm in short axis dime nsion. IMPRESSION: No evidence for deep venous thrombosis of the right lower extremity.
== END 2020-04-24 15:33 | disposition home or self-care (01) ==
LOC: BICULT 15:32
PROVIDERS: ATTEND Orthopaedic Surgery
DX: S80.01XA Contusion of right knee, initial encounter (principal); R22.41 Localized swelling, mass and lump, right lower limb

== ENCOUNTER 2020-05-18 09:32 | Outpatient (CLI) | payer MEDICARE, OTHER ==
--- NOTE | 2020-05-18 10:45 | MMO ---
Bilateral MAMMO Bilat Screen [facility]. CLINICAL HISTORY: Patient is 75 years old and is seen for screening. The patient has the following family history of breast cancer: daughter, at age 40, malignant (generic). The patient has no personal history of cancer. VIEWS: The views performed were: bilateral craniocaudal with tomosynthesis and bilateral mediolateral oblique with tomosynthesis. FILMS COMPARED: The present examination has been compared to prior imaging studies performed at [facility] on 03/13/2016, 04/11/2017, 04/30/2018 and 05/04/2019. This study has been interpreted with the assistance of computer-aided detection. MAMMOGRAM FINDINGS: There are scattered fibroglandular densities. There are stable benign appearing calcifications seen in both breasts. There are no suspicious masses, suspicious calcifications, or new areas of architectural distortion. IMPRESSION: THERE IS NO MAMMOGRAPHIC EVIDENCE OF MALIGNANCY. A ROUTINE FOLLOW-UP MAMMOGRAM IN 1 YEAR IS RECOMMENDED. THE RESULTS OF THIS EXAM WERE SENT TO THE PATIENT. ACR BI-RADS Category 2 - Benign finding MAMMOGRAPHY NOTE: 1. A negative mammogram report should not delay a biopsy if a dominant of clinically suspicious mass is present. 2. Approximately 10% to 15% of breast cancers are not detected by mammography. 3. Adenosis and dense breasts may obscure an underlying neoplasm. Reported by: ORACIO LADD MD Electonically Signed: [id number]
== END 2020-05-18 09:33 | disposition home or self-care (01) ==
LOC: BICMAMMO 09:32
PROVIDERS: ATTEND Internal Medicine
DX: Z12.31 Encounter for screening mammogram for malignant neoplasm of breast (principal); Z80.3 Family history of malignant neoplasm of breast
CPT/HCPCS: 77063; 77067

== ENCOUNTER 2020-08-14 09:24 | Outpatient (CLI) | payer MEDICARE, OTHER | END 2020-08-14 09:25 | disposition home or self-care (01) | LOC: BICRAD 09:24 | PROVIDERS: ATTEND Internal Medicine Critical Care Medicine | DX: R06.00 Dyspnea, unspecified (principal) | CPT/HCPCS: 71046 ==

== ENCOUNTER 2021-01-24 15:10 | Emergency (ER) | payer MEDICARE, OTHER | END 2021-01-24 16:34 | disposition home or self-care (01) | LOC: ERS 15:10 | DX: S80.861A Insect bite (nonvenomous), right lower leg, initial encounter (principal); I83.891 Varicose veins of right lower extremity with other complications; D64.9 Anemia, unspecified; I27.20 Pulmonary hypertension, unspecified; I10 Essential (primary) hypertension; Z87.891 Personal history of nicotine dependence; Z79.82 Long term (current) use of aspirin; Z79.899 Other long term (current) drug therapy; W57.XXXA Bitten or stung by nonvenomous insect and other nonvenomous arthropods, initial encounter | CPT/HCPCS: 99281 ==

== ENCOUNTER 2021-05-25 13:32 | Outpatient (CLI) | payer MEDICARE, OTHER | END 2021-05-25 13:33 | disposition home or self-care (01) | LOC: BICMAMMO 13:32 | PROVIDERS: ATTEND Internal Medicine | DX: Z12.31 Encounter for screening mammogram for malignant neoplasm of breast (principal); Z80.3 Family history of malignant neoplasm of breast | CPT/HCPCS: 77063; 77067 ==

== ENCOUNTER 2022-07-30 13:56 | Outpatient (CLI) | payer MEDICARE, OTHER | END 2022-07-30 13:57 | disposition home or self-care (01) | LOC: BICULT 13:56 | PROVIDERS: ATTEND Internal Medicine | DX: I50.32 Chronic diastolic (congestive) heart failure (principal); I27.20 Pulmonary hypertension, unspecified; J43.2 Centrilobular emphysema; G47.33 Obstructive sleep apnea (adult) (pediatric); R60.0 Localized edema; R06.00 Dyspnea, unspecified | CPT/HCPCS: 93923 ==

== ENCOUNTER 2023-10-01 14:02 | Outpatient (CLI) | payer MEDICARE, OTHER | END 2023-10-01 14:03 | disposition home or self-care (01) | LOC: BICMAMMO 14:02 | PROVIDERS: ATTEND Internal Medicine | DX: Z12.31 Encounter for screening mammogram for malignant neoplasm of breast (principal); Z80.3 Family history of malignant neoplasm of breast | CPT/HCPCS: 77063; 77067 ==